=== PATIENT | female | born 1970 | race Hispanic/Latino ===

== ENCOUNTER 2018-09-09 09:27 | Emergency (ER) | payer OTHER ==
[2018-09-09] MEDS ORDERED: KETOROLAC TROMETHAMINE 30MG/ML ONE (10:33)
[2018-09-09] MEDS ORDERED: ONDANSETRON HCL 4 MG/2 ML VIAL ONE (10:33)
[2018-09-09 10:37] LABS: BASOPHILS % (AUTO) 0.4 % (0.0-5.0); EOSINOPHILS % (AUTO) 0.9 % (0.0-8.0); HEMATOCRIT 31.4 % (36-48); LYMPHOCYTES % (AUTO) 21.9 % (21.0-51.0); MEAN CORPUSCULAR HEMOGLOBIN 27.6 pg (27.0-33.0); MEAN CORPUSCULAR HGB CONC 32.7 g/dL (32.0-36.0); MEAN CORPUSCULAR VOLUME 84.6 fL (79-99); MONOCYTES % (AUTO) 4.8 % (3.0-13.0); PLATELET COUNT (AUTO) 285 K/uL (130-400); RED BLOOD CELL COUNT(AUTO) 3.71 MIL/uL (4.00-5.50); RED CELL DISTRIBUTION WIDTH 15.8 % (11.0-15.5); WHITE BLOOD COUNT (AUTO) 6.7 K/uL (4.8-10.8)
[2018-09-09 10:42] LABS: CREATININE 0.7 mg/dL (0.5-1.5); POTASSIUM 3.4 mmol/L (3.5-5.1)
[2018-09-09 10:46] LABS: ALBUMIN 3.6 g/dL (3.5-5.0); BILIRUBIN,TOTAL 0.4 mg/dL (0.2-1.0); TOTAL PROTEIN, SERUM 7.6 g/dL (6.0-8.3)
== END 2018-09-09 12:31 | disposition home or self-care (01) ==
LOC: EDH 09:27
DX: C50.912 Malignant neoplasm of unspecified site of left female breast (principal)
CPT/HCPCS: 36415; 80053; 85025; 93005; 96374; 96375; 99284; J1885; J2405

== ENCOUNTER 2019-01-05 14:36 | Emergency (ER) | payer OTHER ==
[2019-01-05 15:00] LABS: BASOPHILS % (AUTO) 0.3 % (0.0-5.0); EOSINOPHILS % (AUTO) 0.9 % (0.0-8.0); HEMATOCRIT 24.6 % (36-48); LYMPHOCYTES % (AUTO) 18.8 % (21.0-51.0); MEAN CORPUSCULAR HEMOGLOBIN 27.2 pg (27.0-33.0); MEAN CORPUSCULAR HGB CONC 31.9 g/dL (32.0-36.0); MONOCYTES % (AUTO) 8.6 % (3.0-13.0); NEUTROPHILS % (AUTO) 71.4 % (40.0-77.0); PLATELET COUNT (AUTO) 326 K/uL (130-400); RED CELL DISTRIBUTION WIDTH 18.7 % (11.0-15.5); WHITE BLOOD COUNT (AUTO) 3.7 K/uL (4.8-10.8)
[2019-01-05 15:11] LABS: CREATININE 0.5 mg/dL (0.5-1.5); INR 0.96 (0.85-1.15); POTASSIUM 3.9 mmol/L (3.5-5.1); PROTHROMBIN TIME 10.1 SEC (9.6-11.6)
[2019-01-05 15:16] LABS: ALBUMIN 3.7 g/dL (3.5-5.0); BILIRUBIN,TOTAL 0.5 mg/dL (0.2-1.0); TOTAL PROTEIN, SERUM 7.4 g/dL (6.0-8.3)
[2019-01-05] MEDS ORDERED: IBUPROFEN 600 MG TABLET ONE (17:36)
== END 2019-01-05 22:51 | disposition home or self-care (01) ==
LOC: EDH 14:36
DX: S22.42XA Multiple fractures of ribs, left side, initial encounter for closed fracture (principal); X58.XXXA Exposure to other specified factors, initial encounter; Y93.89 Activity, other specified; Y92.89 Other specified places as the place of occurrence of the external cause; Y99.8 Other external cause status
CPT/HCPCS: 36415; 71045; 71100; 80053; 82550; 84484; 85025; 85378; 85610; 85730; 93005